=== PATIENT | female | born 1995 | race Hispanic/Latino ===

== ENCOUNTER 2018-10-01 08:00 | Emergency (ER) | payer OTHER ==
[2018-10-01 08:36] LABS: APPEARANCE,URINE Clear (CLEAR); BILIRUBIN,URINE Negative (NEGATIVE); COLOR,URINE Yellow (YELLOW); GLUCOSE, URINE (UA) Negative (NEGATIVE); KETONES,URINE Negative (NEGATIVE); LEUKOCYTE ESTERASE ,URINE Negative (NEGATIVE); NITRATE,URINE Negative (NEGATIVE); OCCULT BLOOD,URINE Negative (NEGATIVE); PH,URINE 6.5 (5.0-8.0); PROTEIN,URINE Negative (NEGATIVE); UROBILINOGEN,URINE 0.2 mg/dL (0.2-1.0)
[2018-10-01 08:50] LABS: HCG,QUAL RESULT NEGATIVE (NEGATIVE)
== END 2018-10-01 09:30 | disposition home or self-care (01) ==
LOC: EDH 08:00
DX: N76.4 Abscess of vulva (principal); Z72.0 Tobacco use; Z88.5 Allergy status to narcotic agent
CPT/HCPCS: 81003; 81025

== ENCOUNTER 2020-07-06 15:47 | Emergency (ER) | payer OTHER | END 2020-07-06 19:59 | disposition home or self-care (01) | LOC: EDH 15:47 | DX: B34.9 Viral infection, unspecified (principal); Z20.828 Contact with and (suspected) exposure to other viral communicable diseases; Z88.8 Allergy status to other drugs, medicaments and biological substances | CPT/HCPCS: 87426; 87804 ×2; 99283; U0003 ==